=== PATIENT | male | born 1980 | race Caucasian/White ===

== ENCOUNTER 2018-03-29 15:32 | Emergency (ER) | payer MEDICAID ==
[~2018-03-29] VITALS: Ht 180.3 cm; Wt 83.9 kg
[2018-03-29 15:38] VITALS: BP_SYST 138
[2018-03-29] MEDS ORDERED: DIPH-TET-PERTUS Vaccine 0.5 ML VIAL (ADACEL) I.M. ONE (16:00)
[2018-03-29] MEDS ORDERED: CEPHALEXIN 500 MG CAPSULE PO ONE (16:00)
[2018-03-29 16:15] VITALS: BP_SYST 128
== END 2018-03-29 16:15 | disposition home or self-care (01) ==
LOC: SED 15:32
DX: S61.012A Laceration without foreign body of left thumb without damage to nail, initial encounter (principal); F17.210 Nicotine dependence, cigarettes, uncomplicated; R03.0 Elevated blood-pressure reading, without diagnosis of hypertension; Z88.8 Allergy status to other drugs, medicaments and biological substances; Z71.6 Tobacco abuse counseling; X58.XXXA Exposure to other specified factors, initial encounter; Y93.89 Activity, other specified; Y92.89 Other specified places as the place of occurrence of the external cause; Y99.8 Other external cause status
CPT/HCPCS: 90715; 99283